=== PATIENT | male | born 1990 | race Native Hawaiian/Other Pacific Islander ===

== ENCOUNTER 2016-08-09 07:22 | Emergency (ER) | payer BC ==
[~2016-08-09] VITALS: Ht 193 cm; Wt 77.1 kg
== END 2016-08-09 10:30 | disposition home or self-care (01) ==
LOC: ED 07:22
PROC: 0HQFXZZ Repair Right Hand Skin, External Approach (ICD-10-PCS; principal; 2016-08-09)
DX: S61.302A Unspecified open wound of right middle finger with damage to nail, initial encounter (principal); W23.0XXA Caught, crushed, jammed, or pinched between moving objects, initial encounter; Y92.69 Other specified industrial and construction area as the place of occurrence of the external cause
CPT/HCPCS: 90471; 90715; 99283; J2001